=== PATIENT | male | born 1985 | race African-American/Black ===

== ENCOUNTER → 2016-11-04 | Outpatient (CLI) | payer BC | LOC: BHSO 14:43 | DX: F90.0 Attention-deficit hyperactivity disorder, predominantly inattentive type (principal) ==

== ENCOUNTER → 2017-03-27 | Outpatient (CLI) | payer BC | LOC: BHSO 08:36 | DX: F90.0 Attention-deficit hyperactivity disorder, predominantly inattentive type (principal) ==

== ENCOUNTER → 2017-08-13 | Outpatient (CLI) | payer BC | LOC: BHSO 08:39 | DX: F90.0 Attention-deficit hyperactivity disorder, predominantly inattentive type (principal) | CPT/HCPCS: G0463 ==

== ENCOUNTER → 2018-01-26 | Outpatient (CLI) | payer BC | LOC: BHSO 08:03 | DX: F90.0 Attention-deficit hyperactivity disorder, predominantly inattentive type (principal) | CPT/HCPCS: G0463 ==

== ENCOUNTER → 2018-08-10 | Outpatient (CLI) | payer BC | LOC: BHSO 07:59 | DX: F90.0 Attention-deficit hyperactivity disorder, predominantly inattentive type (principal) | CPT/HCPCS: G0463 ==

== ENCOUNTER → 2018-10-20 | Outpatient (CLI) | payer BC | LOC: BHSO 08:04 | DX: F90.0 Attention-deficit hyperactivity disorder, predominantly inattentive type (principal) | CPT/HCPCS: G0463 ==

== ENCOUNTER → 2019-04-20 | Outpatient (CLI) | payer BC | LOC: BHSO 08:02 | DX: F90.0 Attention-deficit hyperactivity disorder, predominantly inattentive type (principal) | CPT/HCPCS: G0463 ==

== ENCOUNTER → 2020-04-24 | Outpatient (CLI) | payer BC | LOC: BHSO 08:03 | DX: F90.0 Attention-deficit hyperactivity disorder, predominantly inattentive type (principal) | CPT/HCPCS: G0463 ==